=== PATIENT | female | born 1985 | race American Indian/Alaskan Native ===

== ENCOUNTER 2020-03-16 15:22 | Emergency (ER) | payer BC ==
[2020-03-16] MEDS ORDERED: DIPHtheria,PERTUSSIS(ACELL),TETANUS VACCINE/PF 0.5 ML VIAL IM ONE (16:21)
[2020-03-16 16:23] VITALS: BP 114/78
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
--- NOTE | 2020-03-16 17:10 | XRay Report ---
RIGHT FOREARM 2 VIEW(S) INDICATION / CLINICAL INFORMATION: laceration, r/o glass foreign body COMPARISON: None available. FINDINGS: BONES / JOINT(S): No acute fracture or subluxation. No significant arthritis. SOFT TISSUES: Mild edema about the mid forearm. No radiopaque foreign object is visualized. ADDITIONAL FINDINGS: None. Signer Name: Dilan Tsang MD Signed: 03/16/2020 5:05 PM Workstation Name: [id number]
[2020-03-16] MEDS ORDERED: LIDOCAINE 1%/EPINEPHRINE 1:100,000 VIAL (20 ML) INFILTRATI NR (21:45)
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
[2020-03-16] MEDS ORDERED: TETANUS,DIPHTHERIA TOXOID ADULT 0.5 ML INJ IM ONE (22:23)
== END 2020-03-16 23:20 | disposition home or self-care (01) ==
LOC: ED 15:22
DX: S51.811A Laceration without foreign body of right forearm, initial encounter (principal); I10 Essential (primary) hypertension; Z79.1 Long term (current) use of non-steroidal anti-inflammatories (NSAID); Z79.899 Other long term (current) drug therapy; Z91.013 Allergy to seafood; W25.XXXA Contact with sharp glass, initial encounter; Y93.89 Activity, other specified; Y92.89 Other specified places as the place of occurrence of the external cause; Y99.8 Other external cause status
CPT/HCPCS: 90471; 90714